=== PATIENT | female | born 1985 ===

== ENCOUNTER 2019-01-07 07:00 | Day surgery (SDC) | payer OTHER ==
[~2019-01-07 07:00] MED LIST: CITALOPRAM20 MG/10 M PO; HORIZANT300 MG PO; RESTORIL30 M1
== END 2019-01-07 13:00 | disposition home or self-care (01) ==
LOC: CIR.AMB 07:00
PROVIDERS: Plastic Surgery
PROC: 0HBV0ZZ Excision of Bilateral Breast, Open Approach (ICD-10-PCS; principal; 2019-01-07 07:00)
DX: N62 Hypertrophy of breast (principal)